=== PATIENT | male | born 2000 | race Caucasian/White ===

== ENCOUNTER 2024-05-31 10:01 | Outpatient (CLI) | payer BC, SELFPAY ==
--- NOTE | 2024-05-31 10:15 | CRLHL7_ITS ---
For Patients: As a result of the Century Cures Act, medical imaging exams and procedure reports are released immediately into your electronic medical record. You may view this report before your referring provider. If you have questions, please contact your health care provider. Indication: Low back pain radiating to right leg. Technique: Multiplanar multisequence noncontrast MR images of the lumbar spine. Comparison: None. Findings: The lumbar lordosis is preserved. Slight biconvex lumbar curvature. Vertebral body heights maintained. No acute fracture or spondylolisthesis. Nonreactive Schmorl`s nodes at multiple levels. No T1 hypointense lesions. Normal conus terminates at T12-L1. T12-L1 and L1-2: No spinal canal or neural foraminal narrowing. L2-3: Mild disc degeneration. No spinal canal or neural foraminal narrowing. L3-4: Mild disc degeneration. Shallow disc bulge. Dorsal epidural fat prominence. Mild spinal canal narrowing. No neural foraminal narrowing. L4-5: Mild disc degeneration. Posterior disc bulge. Caudally migrated right central/subarticular disc extrusion measuring 5 mm in short axis severely narrows the right lateral recess. Dorsal epidural fat prominence. Mild spinal canal narrowing. No neural foraminal narrowing. L5-S1: Moderate disc degeneration. Posterior disc bulge. Dorsal annular fissure. Mild facet arthropathy. Epidural fat prominence. Minimal thecal sac narrowing. Minimal bilateral neural foraminal narrowing. Impression: 1. At L4-5, caudally migrated right central/subarticular disc extrusion severely narrows the right lateral recess with potential impingement of traversing right L5 nerve roots. 2. Mild spondylosis at additional levels. Dictated by Jason Woodward MD @ 06/01/2024 7:54:22 AM (Electronically Signed)
== END 2024-05-31 10:02 | disposition home or self-care (01) ==
LOC: MRI 10:05
PROVIDERS: Visit Provider Chiropractor
DX: M54.50 Low back pain, unspecified (principal); M51.26 Other intervertebral disc displacement, lumbar region; M47.896 Other spondylosis, lumbar region; S39.012A Strain of muscle, fascia and tendon of lower back, initial encounter; M99.04 Segmental and somatic dysfunction of sacral region
CPT/HCPCS: 72148

== ENCOUNTER 2024-07-23 08:36 | Outpatient (CLI) | payer BC, SELFPAY | END 2024-07-23 08:37 | disposition home or self-care (01) | LOC: INJ CL 08:37 | PROVIDERS: Visit Provider Family Medicine | DX: M54.16 Radiculopathy, lumbar region (principal); M51.26 Other intervertebral disc displacement, lumbar region | CPT/HCPCS: 64483; J1100; Q9966 ==

== ENCOUNTER 2024-08-28 07:01 | Outpatient (CLI) | payer BC, SELFPAY ==
--- NOTE | 2024-08-28 07:15 | CRLHL7_ITS ---
For Patients: As a result of the Century Cures Act, medical imaging exams and procedure reports are released immediately into your electronic medical record. You may view this report before your referring provider. If you have questions, please contact your health care provider. INDICATION: Lumbar stenosis. COMPARISON: 05/31/2024. Technique Sagittal T1, T2, and STIR sequences. Axial T1 and T2 weighted sequences. FINDINGS: Normal vertebral body alignment. No acute fractures. Multilevel small Schmorl`s nodes. No ligamentous injury. No suspicious osseous lesions. Normal conus terminates at L1. T12-L1 L1-2: No spinal canal or neural foraminal narrowing. L2-3: Annular bulging with mild narrowing of spinal canal. No neural foraminal narrowing. L3-4: Annular bulge. Mild narrowing of spinal canal. No neural foraminal narrowing. L4-5: Stable disc degeneration with a right paracentral subarticular disc protrusion measuring approximately 4 mm short axis. Moderate narrowing of spinal canal. Right subarticular recess narrowing with potential impingement of the traversing right L5 nerve root. Mild narrowing of the right neural foramen. No narrowing of left neural foramen. L5-S1: Disc degeneration and posterior disc herniation measures approximately 3 mm in short axis. Tiny annular fissure along the left paracentral zone. No narrowing of spinal canal. No impingement of traversing S1 nerve roots. No neural foraminal narrowing. Normal visualized SI joints. Normal paraspinal soft tissues. IMPRESSION: 1. Normal alignment. No fractures 2. At L4-5, stable disc degeneration with a right paracentral and subarticular disc protrusion. Moderate narrowing of the spinal canal. Right subarticular recess narrowing with potential impingement of the traversing right L5 nerve root. 3. At L5-S1, stable posterior disc herniation. Tiny annular fissure along the left paracentral zone. Otherwise, no spinal canal or neural foraminal narrowing. Dictated by Napoleon Awad MD @ 08/28/2024 4:04:49 PM (Electronically Signed)
== END 2024-08-28 07:02 | disposition home or self-care (01) ==
LOC: MRI 07:01
PROVIDERS: Visit Provider Orthopaedic Surgery Orthopaedic Surgery of the Spine
DX: M48.062 Spinal stenosis, lumbar region with neurogenic claudication (principal); M51.26 Other intervertebral disc displacement, lumbar region; M51.27 Other intervertebral disc displacement, lumbosacral region
CPT/HCPCS: 72148